=== PATIENT | female | born 1975 | race American Indian/Alaskan Native ===

== ENCOUNTER 2021-05-11 12:05 | Emergency (ER) | payer SELFPAY ==
[2021-05-11 17:06] LABS: HCG Qualitative,Urine Negative (Negative)
[2021-05-11 17:10] LABS: Bacteria,Urine 1+ /HPF (Negative); Bilirubin,Urine NEG (Negative); Blood,Urine NEG (Negative); Color,Urine Yellow (Yellow); Mucus,Urine 3+ /HPF; Protein,Urine <15 mg/dL mg/dL (Negative); Urobilinogen,Urine < 2.0 mg/dL (<2.0)
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
[2021-05-11 17:55] VITALS: BP 117/74
== END 2021-05-11 17:54 | disposition home or self-care (01) ==
LOC: ED 12:05
DX: M79.604 Pain in right leg (principal); G89.29 Other chronic pain; N77.1 Vaginitis, vulvitis and vulvovaginitis in diseases classified elsewhere
CPT/HCPCS: 81001; 81025; 87086; 87210; 99284